=== PATIENT | male | born 1960 | race African-American/Black ===

== ENCOUNTER 2017-10-28 08:41 | Inpatient (IN) | payer OTHER ==
[~2017-10-28] VITALS: Ht 182.9 cm; Wt 63.5 kg
[2017-10-28 10:24] LABS: HEMATOCRIT. 36.6 % (42.0-52.0); HEMOGLOBIN. 12.1 g/dL (14.0-18.0); MEAN CORPUSCULAR HEMOGLOBIN 29.9 pg (28.0-32.0); MEAN CORPUSCULAR VOLUME 90.5 fL (80.0-94.0); MEAN PLATELET VOLUME 8.4 fl (7.4-10.4); PLATELET 468 x1000/uL (130-400); RED BLOOD CELL COUNT 4.05 mill/uL (4.7-6.1); RED CELL DISTRIBUTION WIDTH 14.9 % (11.6-14.6)
[2017-10-28 10:28] LABS: CHLORIDE 98 mEq/L (98-107)
[2017-10-28 10:34] LABS: INR 1.1
[2017-10-28 10:53] LABS: CLARITY URINE TURBID (CLEAR); COLOR URINE YELLOW (YELLOW); KETONES URINE NEGATIVE (NEGATIVE); LEUKOCYTE ESTERASE URINE 3+ (NEGATIVE); NITRITE URINE NEGATIVE (NEGATIVE); OCCULT BLOOD URINE 1+ (NEGATIVE); PH URINE 7.5 (4.5-8.0); PROTEIN URINE 1+ (NEGATIVE); SPECIFIC GRAVITY URINE 1.013 (1.005-1.030)
[2017-10-28 11:11] LABS: PLATELET ESTIMATE INCREASED
[2017-10-28] MEDS ORDERED: CEFTRIAXONE 1 G PREMIX 50 ML IV ONE (12:00)
[2017-10-28] MEDS ORDERED: SODIUM CHLORIDE 0.9% 1000ML BAG (SEPSIS BOLUS) IV ONE (12:00)
[2017-10-28] MEDS ORDERED: DOCUSATE SODIUM 100MG CAPSULE PO PRN (12:15)
[2017-10-28] MEDS ORDERED: CLONIDINE 0.1MG TABLET PO PRN (12:15)
[2017-10-28] MEDS ORDERED: DIPHENHYDRAMINE 50MG/ML VIAL IV PRN (12:15)
[2017-10-28] MEDS ORDERED: LORAZEPAM 0.5MG TABLET PO PRN (12:15)
[2017-10-28] MEDS ORDERED: GUAIFENESIN 200MG/10ML SUGAR FREE UDC PO PRN (12:15)
[2017-10-28] MEDS ORDERED: MAGNESIUM/ALUMINUM HYDROXIDE/SIMETHICONE 30ML UDC PO PRN (12:15)
[2017-10-28] MEDS ORDERED: NA PHOS,M-B/NA PHOS,DI-BA ENEMA 118ML PR PRN (12:15)
[2017-10-28] MEDS ORDERED: ONDANSETRON HCL 4MG/2ML VIAL IV PRN (12:15)
[2017-10-28] MEDS ORDERED: ACETAMINOPHEN 325MG TABLET PO PRN (12:15)
[2017-10-28] MEDS ORDERED: NITROGLYCERIN 0.4MG TABLET SL SL PRN (12:15)
[2017-10-28] MEDS ORDERED: IPRATROPIUM/ALBUTEROL 0.5-3(2.5)MG/3ML NEB INH PRN (12:15)
[2017-10-28] MEDS: DUTASTERIDE 0.5MG CAPSULE PO SCH ×2 (15:00→15:59)
[2017-10-28 15:10] VITALS: BP 129/82
[2017-10-28] MEDS ORDERED: ONDANSETRON 4MG ODT PO PRN (15:15)
[2017-10-28] MEDS: ENOXAPARIN 30MG/0.3ML SYR SUBCUT SCH (16:00)
[2017-10-28] MEDS ORDERED: LEVOFLOXACIN 500MG PREMIX 100 ML IV NR (17:00)
[2017-10-28 17:49] LABS: CREATINE KINASE 29 IU/L (39-308)
[2017-10-28 17:50] LABS: CREATINE KINASE MB FRACTION 2.3 ng/mL (0.5-3.6)
[2017-10-28] MEDS: SODIUM CHLORIDE 0.9% 1,000 ML IV SCH (17:57)
[2017-10-28 20:24] LABS: *COCAINE SCREEN URINE NEGATIVE (NEGATIVE); CANNABINOID URINE SCREEN NEGATIVE (NEGATIVE); METHADONE URINE SCREEN NEGATIVE (NEGATIVE); OPIATES URINE SCREEN NEGATIVE (NEGATIVE); PHENCYCLIDINE URINE SCREEN NEGATIVE (NEGATIVE)
[2017-10-28 20:25] LABS: *AMPHETAMINES SCREEN URINE PRESUMTIVE POSITIVE (NEGATIVE); *BARBITURATES SCREEN URINE NEGATIVE (NEGATIVE); *BENZODIAZEPINES SCREEN URINE NEGATIVE (NEGATIVE)
[2017-10-28] MEDS: ASCORBIC ACID 500 MG TABLET PO SCH (20:55)
[2017-10-28] MEDS: FAMOTIDINE 20MG TABLET PO SCH (20:55)
[2017-10-28] MEDS ORDERED: ZOLPIDEM TARTRATE 5MG TABLET PO PRN (21:00)
[2017-10-29] VITALS: BP 125/80
[2017-10-29 00:02] LABS: CREATINE KINASE 25 IU/L (39-308); CREATINE KINASE MB FRACTION 2.3 ng/mL (0.5-3.6)
[2017-10-29 04:00] VITALS: BP 118/79
[2017-10-29] MEDS: SODIUM CHLORIDE 0.9% 1,000 ML IV SCH ×3 (05:10→23:05)
[2017-10-29 05:35] LABS: HEMATOCRIT. 33.3 % (42.0-52.0); HEMOGLOBIN. 10.8 g/dL (14.0-18.0); MEAN CORPUSCULAR HEMOGLOBIN 29.5 pg (28.0-32.0); MEAN CORPUSCULAR VOLUME 91.4 fL (80.0-94.0); MEAN PLATELET VOLUME 8.3 fl (7.4-10.4); PLATELET 355 x1000/uL (130-400); RED BLOOD CELL COUNT 3.65 mill/uL (4.7-6.1); RED CELL DISTRIBUTION WIDTH 14.8 % (11.6-14.6)
[2017-10-29 06:28] LABS: CHLORIDE 105 mEq/L (98-107)
[2017-10-29 07:51] VITALS: BP 123/81
[2017-10-29] MEDS: ASCORBIC ACID 500 MG TABLET PO SCH ×2 (08:31→19:44)
[2017-10-29] MEDS: DUTASTERIDE 0.5MG CAPSULE PO SCH (08:31)
[2017-10-29] MEDS: TAMSULOSIN HCL 0.4MG SR CAPSULE PO SCH (08:31)
[2017-10-29] MEDS ORDERED: CEFTRIAXONE 1 G PREMIX 50 ML IV SCH (09:00)
[2017-10-29] MEDS ORDERED: PIPERACILLIN/TAZOBACTAM 2.25 G in DEXTROSE 5% WATER 50 ML IV SCH (10:00)
[2017-10-29 12:01] VITALS: BP 106/72
[2017-10-29] MEDS: PIPERACILLIN/TAZOBACTAM 2.25 G in DEXTROSE 5% WATER 50 ML IV SCH ×2 (12:42→19:44)
[2017-10-29 15:11] LABS: PLATELET ESTIMATE NORMAL
[2017-10-29 16:00] VITALS: BP 116/77
[2017-10-29] MEDS: ENOXAPARIN 30MG/0.3ML SYR SUBCUT SCH (16:27)
[2017-10-29] MEDS: FAMOTIDINE 20MG TABLET PO SCH (19:44)
[2017-10-29 20:00] VITALS: BP 127/75
[2017-10-30] VITALS: BP 125/83
[2017-10-30 04:00] VITALS: BP 119/72
[2017-10-30] MEDS: PIPERACILLIN/TAZOBACTAM 2.25 G in DEXTROSE 5% WATER 50 ML IV SCH (04:11)
[2017-10-30 08:24] LABS: CHLAMYDIA TRACHOMATIS NAA Negative (Negative); NEISSERIA GONORRHOEAE NAA Negative (Negative)
[2017-10-30 08:40] VITALS: BP 105/65
[2017-10-30] MEDS: SODIUM CHLORIDE 0.9% 1,000 ML IV SCH (09:00)
[2017-10-30] MEDS ORDERED: CEFTRIAXONE 1 G PREMIX 50 ML IV SCH (09:00)
[2017-10-30] MEDS: TAMSULOSIN HCL 0.4MG SR CAPSULE PO SCH (09:33)
[2017-10-30] MEDS: DUTASTERIDE 0.5MG CAPSULE PO SCH (09:33)
[2017-10-30] MEDS: ASCORBIC ACID 500 MG TABLET PO SCH (09:33)
[2017-10-30 10:41] VITALS: BP 105/65
[2017-10-30] MEDS ORDERED: LEVOFLOXACIN 250MG PREMIX 50 ML IV SCH (12:00)
[2017-10-30 12:27] VITALS: BP 114/71
== END 2017-10-30 15:46 | disposition home or self-care (01) | DRG 682 ==
LOC: ER 08:57 → 8WST 12:20 → EDBEDREQ 12:22 → EDBEDREQTM 12:22 → ENRESERV 13:55
PROVIDERS: ADMIT Internal Medicine; ATTEND Internal Medicine
DX: N17.0 Acute kidney failure with tubular necrosis (principal); E43 Unspecified severe protein-calorie malnutrition; E87.1 Hypo-osmolality and hyponatremia; Z68.1 Body mass index [BMI] 19.9 or less, adult; N13.8 Other obstructive and reflux uropathy; C90.00 Multiple myeloma not having achieved remission; E88.09 Other disorders of plasma-protein metabolism, not elsewhere classified; N12 Tubulo-interstitial nephritis, not specified as acute or chronic; N40.1 Benign prostatic hyperplasia with lower urinary tract symptoms; F17.210 Nicotine dependence, cigarettes, uncomplicated; E83.52 Hypercalcemia; N13.30 Unspecified hydronephrosis; D63.8 Anemia in other chronic diseases classified elsewhere; F15.10 Other stimulant abuse, uncomplicated; Z71.51 Drug abuse counseling and surveillance of drug abuser; Z59.0 Homelessness; Z71.6 Tobacco abuse counseling
CPT/HCPCS: 36415; 76770; 80048; 80053; 80061; 80305; 81003; 82550; 82553; 83036; 83605; 84484; 85025; 85610; 87040; 87077; 87086; 87186; 87491; 87591; 93970; 96365; 99285; J0696; J1650; J1956; J2543; J7030; J7060; A4315

== ENCOUNTER 2018-03-07 07:26 | Emergency (ER) | payer OTHER, MEDICAID ==
[~2018-03-07] VITALS: Ht 180.3 cm; Wt 88.0 kg
[2018-03-07] MEDS ORDERED: SODIUM CHLORIDE 0.9% 1,000 ML IV ONE (10:30)
[2018-03-07 12:10] LABS: HEMATOCRIT. 39.4 % (42.0-52.0); HEMOGLOBIN. 13.1 g/dL (14.0-18.0); MEAN CORPUSCULAR HEMOGLOBIN 31.2 pg (28.0-32.0); MEAN CORPUSCULAR VOLUME 94.1 fL (80.0-94.0); MEAN PLATELET VOLUME 9.9 fl (7.4-10.4); PLATELET 147 x1000/uL (130-400); RED BLOOD CELL COUNT 4.19 mill/uL (4.7-6.1); RED CELL DISTRIBUTION WIDTH 13.5 % (11.6-14.6)
[2018-03-07 12:18] LABS: INR 1.2; PROTHROMBIN TIME 11.7 sec (9.1-11.1)
[2018-03-07 12:43] LABS: CHLORIDE 108 mEq/L (98-107)
[2018-03-07 12:48] LABS: PLATELET ESTIMATE NORMAL
[2018-03-07 14:25] LABS: CLARITY URINE CLEAR (CLEAR); COLOR URINE YELLOW (YELLOW); KETONES URINE NEGATIVE (NEGATIVE); LEUKOCYTE ESTERASE URINE 3+ (NEGATIVE); NITRITE URINE NEGATIVE (NEGATIVE); OCCULT BLOOD URINE 1+ (NEGATIVE); PH URINE 6.5 (4.5-8.0); PROTEIN URINE NEGATIVE (NEGATIVE); SPECIFIC GRAVITY URINE 1.005 (1.005-1.030); UROBILINOGEN URINE 0.2 E.U./dL (0.2-1.0)
[2018-03-07 17:13] VITALS: BP 148/80
== END 2018-03-07 17:20 | disposition home or self-care (01) ==
LOC: ER 07:26
DX: T83.83XA Hemorrhage due to genitourinary prosthetic devices, implants and grafts, initial encounter (principal); R31.9 Hematuria, unspecified; N40.0 Benign prostatic hyperplasia without lower urinary tract symptoms; F17.200 Nicotine dependence, unspecified, uncomplicated
CPT/HCPCS: 36415; 51702; 80053; 81003; 85025; 85610; 87086; 99284; J7030; 99283; A4315

== ENCOUNTER 2018-06-27 23:32 | Emergency (ER) | payer MEDICAID, OTHER ==
[~2018-06-27] VITALS: Ht 190.5 cm; Wt 82.0 kg
[2018-06-28 05:07] VITALS: BP 153/90
[2018-06-28 05:09] LABS: CLARITY URINE CLOUDY (CLEAR); COLOR URINE YELLOW (YELLOW); KETONES URINE NEGATIVE (NEGATIVE); LEUKOCYTE ESTERASE URINE 3+ (NEGATIVE); NITRITE URINE POSITIVE (NEGATIVE); OCCULT BLOOD URINE 3+ (NEGATIVE); PH URINE 8.5 (4.5-8.0); PROTEIN URINE 1+ (NEGATIVE); SPECIFIC GRAVITY URINE 1.016 (1.005-1.030)
== END 2018-06-28 05:26 | disposition home or self-care (01) ==
LOC: ER 23:32
DX: T83.021A Displacement of indwelling urethral catheter, initial encounter (principal); F17.200 Nicotine dependence, unspecified, uncomplicated; Y82.8 Other medical devices associated with adverse incidents; Y92.9 Unspecified place or not applicable
CPT/HCPCS: 51702; 81003; 87077; 87086; 87186; 99284; Z7610; A4315

== ENCOUNTER 2018-09-12 23:46 | Emergency (ER) | payer MEDICAID, OTHER ==
[~2018-09-12] VITALS: Ht 190.5 cm; Wt 81.0 kg
[2018-09-13] MEDS ORDERED: KETOROLAC 30MG/ML VIAL IM ONE (01:15)
[2018-09-13] MEDS ORDERED: MORPHINE SULFATE 10 MG/ML CPJ IM ONE (01:15)
[2018-09-13 02:52] LABS: CLARITY URINE TURBID (CLEAR); KETONES URINE NEGATIVE (NEGATIVE); LEUKOCYTE ESTERASE URINE 3+ (NEGATIVE); NITRITE URINE POSITIVE (NEGATIVE); OCCULT BLOOD URINE 3+ (NEGATIVE); PROTEIN URINE 2+ (NEGATIVE); SPECIFIC GRAVITY URINE 1.018 (1.005-1.030)
[2018-09-13 02:53] LABS: COLOR URINE BLOODY (YELLOW)
[2018-09-13 04:19] VITALS: BP 162/97
== END 2018-09-13 04:21 | disposition home or self-care (01) ==
LOC: ER 23:46
DX: T83.028A Displacement of other urinary catheter, initial encounter (principal); N30.91 Cystitis, unspecified with hematuria; F17.200 Nicotine dependence, unspecified, uncomplicated
CPT/HCPCS: 81003; 87086; 96372; 99283; J1885; J2270; A4315

== ENCOUNTER 2019-01-31 08:11 | Emergency (ER) | payer OTHER ==
[~2019-01-31] VITALS: Ht 190.5 cm; Wt 85.0 kg
[2019-01-31 10:29] VITALS: BP 130/83
== END 2019-01-31 10:46 | disposition home or self-care (01) ==
LOC: ER 08:20
DX: L03.211 Cellulitis of face (principal); F17.200 Nicotine dependence, unspecified, uncomplicated
CPT/HCPCS: 99283

== ENCOUNTER 2022-12-10 12:56 | Emergency (ER) | payer OTHER ==
[~2022-12-10] VITALS: Ht 190.5 cm; Wt 90.0 kg
[2022-12-10 13:14] VITALS: BP 111/72; PULSE 45; RESP 20; TEMP 98.1; O2SAT 100
== END 2022-12-10 15:16 | disposition home or self-care (01) ==
LOC: ER 12:56
DX: Z00.01 Encounter for general adult medical examination with abnormal findings (principal); I10 Essential (primary) hypertension; M54.30 Sciatica, unspecified side; Z90.49 Acquired absence of other specified parts of digestive tract
CPT/HCPCS: 99281; Z7610